=== PATIENT | female | born 1955 | race Caucasian/White ===

== ENCOUNTER 2018-09-03 18:30 | Inpatient (IN) | payer OTHER ==
[2018-09-03] MEDS ORDERED: PIPER-TAZO 3.375 GM IV (PMX) 100 ML IVPB (19:00)
[2018-09-03] MEDS ORDERED: NACL 0.9% 3 ML SYG IV (19:00)
[2018-09-03 19:17] LABS: ADD MAN DIFF? NO
[2018-09-03 19:18] LABS: WHITE BLOOD COUNT 8.1 10^3/ul (4.8-10.8)
[2018-09-03 19:18] LABS: BASOPHIL # 0.1 10^3/ul (0.0-0.1); BASOPHILS % 0.6 % (0.0-2.0); EOSINOPHILS % 0.2 % (0.0-7.0); HEMATOCRIT 38.7 % (37.0-47.0); HEMOGLOBIN 12.3 g/dl (12.0-16.0); LYMPHOCYTES # 1.2 10^3/ul (0.8-2.9); LYMPHOCYTES % 15.2 % (15.0-51.0); MEAN CORPUSCULAR HEMOGLOBIN 26.9 pg (29.0-33.0); MEAN CORPUSCULAR HGB CONC 31.8 g/dl (32.0-37.0); MEAN CORPUSCULAR VOLUME 84.5 fl (82.0-101.0); MEAN PLATELET VOLUME 8.8 fl (7.4-10.4); MONOCYTE # 0.5 10^3/ul (0.3-0.9); MONOCYTES % 6.2 % (0.0-11.0); NEUTROPHIL # 6.2 10^3/ul (1.6-7.5); NEUTROPHILS % 77.3 % (39.0-77.0); PLATELET COUNT 547 10^3/UL (140-415); RED BLOOD COUNT 4.58 10^6/ul (4.20-5.40); RED CELL DISTRIBUTION WIDTH 13.6 % (11.5-14.5)
[2018-09-03] MEDS ORDERED: VANCOMYCIN IV PER PHARMACY XX (19:30)
[2018-09-03 19:39] LABS: ALANINE AMINOTRANSFERASE 39 IU/L (13-69); ALBUMIN 3.4 g/dl (3.3-4.9); ALBUMIN/GLOBULIN RATIO 1.13; ALKALINE PHOSPHATASE 69 IU/L (42-121); ANION GAP 9 (5-13); ASPARTATE AMINO TRANSFERASE 29 IU/L (15-46); BILIRUBIN,INDIRECT 0.3 mg/dl (0-1.1); BILIRUBIN,TOTAL 0.3 mg/dl (0.2-1.3); BLOOD UREA NITROGEN 7 mg/dl (7-20); CALCIUM 8.3 mg/dl (8.4-10.2); CARBON DIOXIDE 23 mmol/L (21-31); CHLORIDE 108 mmol/L (97-110); CREATININE 0.54 mg/dl (0.44-1.00); Estimated GFR > 60 mL/min (>60); GLUCOSE 134 mg/dl (70-220); POTASSIUM 4.5 mmol/L (3.5-5.1); SODIUM 140 mmol/L (135-144); TOTAL PROTEIN 6.4 g/dl (6.1-8.1)
[2018-09-03 19:56] LABS: FREE THYROXINE INDEX (Calc) 2.87 ug/ml (0.65-3.89); T3 UPTAKE 33.8 % (23.5-40.5); T4 (THYROXINE) 8.5 ug/dl (5.5-11.0)
[2018-09-03 20:10] LABS: THYROID STIMULATING HORMONE 0.337 MIU/L (0.465-4.680)
[2018-09-03] MEDS: CEFTRIAXONE 1 GM/NS 50 ML IVPB (21:00)
[2018-09-03] MEDS: HYDROCODONE/APAP (5/325) TAB PO (21:01)
[2018-09-03] MEDS ORDERED: MEROPENEM 1 GM/50ML(PMX) 50 ML IVPB (22:00)
[2018-09-03] MEDS: VANCOMYCIN HCL 1.5 GM in SOD CHLORIDE 0.9% 250 ML IVPB (22:07)
[2018-09-03] MEDS: DEXAMETHASONE 4 MG/ML 1 ML INJ IV (22:49)
[2018-09-03] MEDS: morphine 2 MG INJ IV (23:25)
[2018-09-04] MEDS: morphine 2 MG INJ IV ×4 (06:33→20:34)
[2018-09-04 06:48] LABS: ADD MAN DIFF? NO
[2018-09-04 06:53] LABS: WHITE BLOOD COUNT 10.2 10^3/ul (4.8-10.8)
[2018-09-04 06:53] LABS: BASOPHIL # 0.1 10^3/ul (0.0-0.1); BASOPHILS % 0.6 % (0.0-2.0); EOSINOPHILS % 0.3 % (0.0-7.0); HEMATOCRIT 37.5 % (37.0-47.0); HEMOGLOBIN 11.9 g/dl (12.0-16.0); LYMPHOCYTES # 1.5 10^3/ul (0.8-2.9); LYMPHOCYTES % 14.6 % (15.0-51.0); MEAN CORPUSCULAR HEMOGLOBIN 26.8 pg (29.0-33.0); MEAN CORPUSCULAR HGB CONC 31.7 g/dl (32.0-37.0); MEAN CORPUSCULAR VOLUME 84.5 fl (82.0-101.0); MONOCYTE # 0.8 10^3/ul (0.3-0.9); MONOCYTES % 7.6 % (0.0-11.0); NEUTROPHIL # 7.8 10^3/ul (1.6-7.5); NEUTROPHILS % 76.2 % (39.0-77.0); PLATELET COUNT 543 10^3/UL (140-415); RED BLOOD COUNT 4.44 10^6/ul (4.20-5.40); RED CELL DISTRIBUTION WIDTH 13.9 % (11.5-14.5)
[2018-09-04 07:06] LABS: HEMOGLOBIN A1C 5.9 % (0-5.9)
[2018-09-04 07:38] LABS: ALANINE AMINOTRANSFERASE 33 IU/L (13-69); ALBUMIN 3.1 g/dl (3.3-4.9); ALBUMIN/GLOBULIN RATIO 1.06; ALKALINE PHOSPHATASE 57 IU/L (42-121); ANION GAP 10 (5-13); ASPARTATE AMINO TRANSFERASE 27 IU/L (15-46); BILIRUBIN,INDIRECT 0.3 mg/dl (0-1.1); BILIRUBIN,TOTAL 0.3 mg/dl (0.2-1.3); BLOOD UREA NITROGEN 10 mg/dl (7-20); CALCIUM 8.2 mg/dl (8.4-10.2); CARBON DIOXIDE 25 mmol/L (21-31); CHLORIDE 106 mmol/L (97-110); CREATININE 0.53 mg/dl (0.44-1.00); Estimated GFR > 60 mL/min (>60); GLUCOSE 123 mg/dl (70-220); MAGNESIUM 2.3 mg/dl (1.7-2.5); POTASSIUM 4.5 mmol/L (3.5-5.1); SODIUM 141 mmol/L (135-144)
[2018-09-04] MEDS: VANCOMYCIN 1 GM 250 ML IVPB ×2 (09:12→22:03)
[2018-09-04] MEDS: CEFTRIAXONE 1 GM/NS 50 ML IVPB (20:37)
[2018-09-05] MEDS: ACETAMINOPHEN 325 MG TAB PO (00:18)
[2018-09-05] MEDS: morphine 2 MG INJ IV ×5 (00:23→19:56)
[2018-09-05 01:27] LABS: LACTIC ACID 0.8 mmol/L (0.5-2.0)
[2018-09-05] MEDS: VANCOMYCIN TROUGH XX (09:00)
[2018-09-05 10:26] LABS: VANCOMYCIN,TROUGH 5.6 ug/ml (10.0-20.0)
[2018-09-05] MEDS: VANCOMYCIN 1 GM 250 ML IVPB (10:49)
[2018-09-05] MEDS ORDERED: AMPICILLIN/SULB 3 GM/NS (PMX) 100 ML IVPB (12:00)
[2018-09-05] MEDS: MEROPENEM 1 GM/50ML(PMX) 50 ML IVPB ×2 (14:33→21:54)
[2018-09-06] MEDS: morphine 2 MG INJ IV ×6 (00:33→22:30)
[2018-09-06] MEDS: MEROPENEM 1 GM/50ML(PMX) 50 ML IVPB ×3 (06:34→21:02)
[2018-09-06] MEDS: FLUCONAZOLE 100 MG/50 ML (PMX) 50 ML IVPB (17:28)
[2018-09-06] MEDS: BISACODYL (EC) 5 MG TAB PO (17:28)
[2018-09-06] MEDS: NYSTATIN SUSP 5 ML CUP PO ×2 (17:30→21:03)
[2018-09-07] MEDS: morphine 2 MG INJ IV ×4 (02:52→22:40)
[2018-09-07] MEDS: MEROPENEM 1 GM/50ML(PMX) 50 ML IVPB ×3 (06:24→22:40)
[2018-09-07] MEDS: NYSTATIN SUSP 5 ML CUP PO ×4 (09:29→20:31)
[2018-09-07] MEDS: SOD CHLORIDE 0.9% 1,000 ML IV (12:11)
[2018-09-07] MEDS: HYDROCODONE/APAP (5/325) TAB PO (19:02)
[2018-09-07] MEDS: FLUCONAZOLE 100 MG/50 ML (PMX) 50 ML IVPB (20:31)
[2018-09-08] MEDS: morphine 2 MG INJ IV ×4 (05:22→21:26)
[2018-09-08] MEDS: MEROPENEM 1 GM/50ML(PMX) 50 ML IVPB ×3 (05:22→21:23)
[2018-09-08] MEDS: NYSTATIN SUSP 5 ML CUP PO ×4 (08:37→20:34)
[2018-09-08] MEDS: HYDROCODONE/APAP (5/325) TAB PO (12:57)
[2018-09-08] MEDS: KETOROLAC 15 MG INJ IV ×2 (17:24→23:47)
[2018-09-08] MEDS: FLUCONAZOLE 100 MG/50 ML (PMX) 50 ML IVPB (18:11)
[2018-09-09] MEDS: MEROPENEM 1 GM/50ML(PMX) 50 ML IVPB ×3 (05:17→21:56)
[2018-09-09] MEDS: KETOROLAC 15 MG INJ IV ×2 (05:54→19:22)
[2018-09-09 06:09] LABS: ADD MAN DIFF? NO
[2018-09-09 06:10] LABS: WHITE BLOOD COUNT 14.8 10^3/ul (4.8-10.8)
[2018-09-09 06:10] LABS: BASOPHIL # 0.1 10^3/ul (0.0-0.1); BASOPHILS % 0.8 % (0.0-2.0); EOSINOPHILS # 1.5 10^3/ul (0.0-0.5); EOSINOPHILS % 9.9 % (0.0-7.0); HEMATOCRIT 38.9 % (37.0-47.0); HEMOGLOBIN 12.4 g/dl (12.0-16.0); LYMPHOCYTES # 2.3 10^3/ul (0.8-2.9); LYMPHOCYTES % 15.7 % (15.0-51.0); MEAN CORPUSCULAR HEMOGLOBIN 26.7 pg (29.0-33.0); MEAN CORPUSCULAR HGB CONC 31.9 g/dl (32.0-37.0); MEAN CORPUSCULAR VOLUME 83.8 fl (82.0-101.0); MEAN PLATELET VOLUME 8.9 fl (7.4-10.4); MONOCYTE # 1.1 10^3/ul (0.3-0.9); MONOCYTES % 7.2 % (0.0-11.0); NEUTROPHIL # 9.7 10^3/ul (1.6-7.5); NEUTROPHILS % 65.8 % (39.0-77.0); PLATELET COUNT 739 10^3/UL (140-415); RED BLOOD COUNT 4.64 10^6/ul (4.20-5.40); RED CELL DISTRIBUTION WIDTH 13.6 % (11.5-14.5)
[2018-09-09 06:42] LABS: ANION GAP 10 (5-13); BLOOD UREA NITROGEN 12 mg/dl (7-20); CALCIUM 8.6 mg/dl (8.4-10.2); CARBON DIOXIDE 28 mmol/L (21-31); CHLORIDE 99 mmol/L (97-110); CREATININE 0.62 mg/dl (0.44-1.00); Estimated GFR > 60 mL/min (>60); GLUCOSE 100 mg/dl (70-220); POTASSIUM 4.3 mmol/L (3.5-5.1); SODIUM 137 mmol/L (135-144)
[2018-09-09] MEDS: NYSTATIN SUSP 5 ML CUP PO ×4 (09:36→20:48)
[2018-09-09] MEDS: morphine 2 MG INJ IV ×3 (10:45→22:01)
[2018-09-09] MEDS: FLUCONAZOLE 100 MG/50 ML (PMX) 50 ML IVPB (18:42)
[2018-09-10] MEDS: KETOROLAC 15 MG INJ IV ×4 (01:52→19:52)
[2018-09-10] MEDS: morphine 2 MG INJ IV ×4 (03:53→19:53)
[2018-09-10] MEDS: MEROPENEM 1 GM/50ML(PMX) 50 ML IVPB ×3 (05:32→20:01)
[2018-09-10] MEDS: NYSTATIN SUSP 5 ML CUP PO ×4 (08:18→20:01)
[2018-09-10] MEDS: FLUCONAZOLE 100 MG/50 ML (PMX) 50 ML IVPB (18:27)
[2018-09-11] MEDS: morphine 2 MG INJ IV ×6 (00:13→23:27)
[2018-09-11] MEDS: KETOROLAC 15 MG INJ IV ×4 (02:06→21:33)
[2018-09-11] MEDS: MEROPENEM 1 GM/50ML(PMX) 50 ML IVPB ×3 (05:11→21:33)
[2018-09-11] MEDS: NYSTATIN SUSP 5 ML CUP PO ×4 (08:51→20:31)
[2018-09-11] MEDS: SOD CHLORIDE 0.9% 500 ML IV (11:48)
[2018-09-11] MEDS ORDERED: DEXTROSE 5%-0.45% NACL 1,000 ML IV (12:00)
[2018-09-11] MEDS: FLUCONAZOLE 100 MG/50 ML (PMX) 50 ML IVPB (18:23)
[2018-09-12] MEDS: SOD CHLORIDE 0.9% 1,000 ML IV (02:37)
[2018-09-12] MEDS: KETOROLAC 15 MG INJ IV ×3 (03:55→20:25)
[2018-09-12] MEDS: MEROPENEM 1 GM/50ML(PMX) 50 ML IVPB ×3 (05:48→21:45)
[2018-09-12] MEDS: NYSTATIN SUSP 5 ML CUP PO ×4 (08:52→20:23)
[2018-09-12] MEDS: morphine 2 MG INJ IV ×3 (10:51→21:56)
[2018-09-12] MEDS: FLUCONAZOLE 100 MG/50 ML (PMX) 50 ML IVPB (18:07)
[2018-09-12] MEDS: ONDANSETRON 4 MG INJ IV (20:25)
[2018-09-13] MEDS: morphine 2 MG INJ IV ×3 (02:33→16:43)
[2018-09-13] MEDS: MEROPENEM 1 GM/50ML(PMX) 50 ML IVPB ×3 (05:10→22:32)
[2018-09-13] MEDS: ONDANSETRON 4 MG INJ IV ×3 (05:35→22:33)
[2018-09-13] MEDS: NYSTATIN SUSP 5 ML CUP PO ×4 (09:03→20:16)
[2018-09-13] MEDS: KETOROLAC 15 MG INJ IV ×3 (09:04→22:33)
[2018-09-13] MEDS ORDERED: VANCOMYCIN IV PER PHARMACY XX (11:00)
[2018-09-13] MEDS: VANCOMYCIN HCL 1.5 GM in SOD CHLORIDE 0.9% 250 ML IVPB (15:23)
[2018-09-13 16:10] LABS: BLOOD UREA NITROGEN 10 mg/dl (7-20)
[2018-09-13] MEDS: HYDROmorphONE 1 MG/ML SYG IV (17:56)
[2018-09-13] MEDS: FLUCONAZOLE 100 MG/50 ML (PMX) 50 ML IVPB (20:15)
[2018-09-13 20:16] LABS: ADD MAN DIFF? NO
[2018-09-13] MEDS: HYDROmorphONE 0.5 MG/0.5 ML SYG IV (20:16)
[2018-09-13] MEDS: METOCLOPRAMIDE 10 MG INJ IV (20:16)
[2018-09-13 20:18] LABS: WHITE BLOOD COUNT 20.3 10^3/ul (4.8-10.8)
[2018-09-13 20:18] LABS: ABNORMAL IP MESSAGE 1; BASOPHIL # 0.1 10^3/ul (0.0-0.1); BASOPHILS % 0.3 % (0.0-2.0); EOSINOPHILS # 2.2 10^3/ul (0.0-0.5); HEMATOCRIT 38.5 % (37.0-47.0); HEMOGLOBIN 12.7 g/dl (12.0-16.0); LYMPHOCYTES # 1.5 10^3/ul (0.8-2.9); LYMPHOCYTES % 7.4 % (15.0-51.0); MEAN CORPUSCULAR HEMOGLOBIN 26.5 pg (29.0-33.0); MEAN CORPUSCULAR VOLUME 80.4 fl (82.0-101.0); MEAN PLATELET VOLUME 8.8 fl (7.4-10.4); MONOCYTE # 0.5 10^3/ul (0.3-0.9); MONOCYTES % 2.6 % (0.0-11.0); NEUTROPHIL # 15.8 10^3/ul (1.6-7.5); NEUTROPHILS % 78.1 % (39.0-77.0); PLATELET COUNT 658 10^3/UL (140-415); RED BLOOD COUNT 4.79 10^6/ul (4.20-5.40); RED CELL DISTRIBUTION WIDTH 13.9 % (11.5-14.5)
[2018-09-13 20:27] LABS: POSITIVE DIFF @See below
[2018-09-13] MEDS: CLINDAMYCIN 900 MG/D5W (PMX) 50 ML IVPB (21:21)
[2018-09-13] MEDS: DEXAMETHASONE 4 MG/ML 5 ML INJ IV (22:33)
[2018-09-14] MEDS: CLINDAMYCIN 900 MG/D5W (PMX) 50 ML IVPB ×4 (00:22→17:32)
[2018-09-14 01:12] LABS: OCCULT BLOOD STOOL POSITIVE (NEGATIVE)
[2018-09-14] MEDS: VANCOMYCIN HCL 1.5 GM in SOD CHLORIDE 0.9% 250 ML IVPB ×2 (02:32→14:55)
[2018-09-14 02:39] LABS: ADD MAN DIFF? NO
[2018-09-14] MEDS: morphine 2 MG INJ IV ×3 (02:39→19:51)
[2018-09-14 02:42] LABS: WHITE BLOOD COUNT 19.4 10^3/ul (4.8-10.8)
[2018-09-14 02:42] LABS: BASOPHIL # 0.1 10^3/ul (0.0-0.1); BASOPHILS % 0.5 % (0.0-2.0); EOSINOPHILS # 0.2 10^3/ul (0.0-0.5); EOSINOPHILS % 0.9 % (0.0-7.0); HEMOGLOBIN 12.6 g/dl (12.0-16.0); LYMPHOCYTES % 5.1 % (15.0-51.0); MEAN CORPUSCULAR HEMOGLOBIN 26.8 pg (29.0-33.0); MEAN CORPUSCULAR HGB CONC 33.2 g/dl (32.0-37.0); MEAN CORPUSCULAR VOLUME 80.9 fl (82.0-101.0); MEAN PLATELET VOLUME 8.8 fl (7.4-10.4); MONOCYTE # 0.3 10^3/ul (0.3-0.9); MONOCYTES % 1.4 % (0.0-11.0); NEUTROPHIL # 17.7 10^3/ul (1.6-7.5); NEUTROPHILS % 91.3 % (39.0-77.0); PLATELET COUNT 636 10^3/UL (140-415); RED CELL DISTRIBUTION WIDTH 13.6 % (11.5-14.5)
[2018-09-14] MEDS: DEXAMETHASONE 4 MG/ML 5 ML INJ IV ×2 (06:03→13:58)
[2018-09-14] MEDS: MEROPENEM 1 GM/50ML(PMX) 50 ML IVPB ×3 (06:03→21:28)
[2018-09-14] MEDS: KETOROLAC 15 MG INJ IV (06:45)
[2018-09-14] MEDS: NYSTATIN SUSP 5 ML CUP PO ×4 (09:06→20:01)
[2018-09-14 09:23] LABS: ADD MAN DIFF? NO
[2018-09-14 09:34] LABS: WHITE BLOOD COUNT 13.4 10^3/ul (4.8-10.8)
[2018-09-14 09:34] LABS: BASOPHIL # 0.1 10^3/ul (0.0-0.1); BASOPHILS % 0.4 % (0.0-2.0); EOSINOPHILS # 0.2 10^3/ul (0.0-0.5); EOSINOPHILS % 1.2 % (0.0-7.0); HEMATOCRIT 39.6 % (37.0-47.0); HEMOGLOBIN 12.9 g/dl (12.0-16.0); LYMPHOCYTES # 1.2 10^3/ul (0.8-2.9); LYMPHOCYTES % 8.9 % (15.0-51.0); MEAN CORPUSCULAR HGB CONC 32.6 g/dl (32.0-37.0); MEAN CORPUSCULAR VOLUME 79.7 fl (82.0-101.0); MEAN PLATELET VOLUME 9.3 fl (7.4-10.4); MONOCYTE # 0.2 10^3/ul (0.3-0.9); MONOCYTES % 1.6 % (0.0-11.0); NEUTROPHIL # 11.6 10^3/ul (1.6-7.5); NEUTROPHILS % 86.9 % (39.0-77.0); PLATELET COUNT 669 10^3/UL (140-415); RED BLOOD COUNT 4.97 10^6/ul (4.20-5.40); RED CELL DISTRIBUTION WIDTH 13.9 % (11.5-14.5)
[2018-09-14 09:47] LABS: POSITIVE DIFF @See below
[2018-09-14 09:48] LABS: ALANINE AMINOTRANSFERASE 18 IU/L (13-69); ALBUMIN 3.1 g/dl (3.3-4.9); ALBUMIN/GLOBULIN RATIO 0.93; ALKALINE PHOSPHATASE 56 IU/L (42-121); ANION GAP 13 (5-13); ASPARTATE AMINO TRANSFERASE 17 IU/L (15-46); BILIRUBIN,INDIRECT 0.3 mg/dl (0-1.1); BILIRUBIN,TOTAL 0.3 mg/dl (0.2-1.3); BLOOD UREA NITROGEN 14 mg/dl (7-20); CALCIUM 8.1 mg/dl (8.4-10.2); CARBON DIOXIDE 24 mmol/L (21-31); CHLORIDE 98 mmol/L (97-110); CREATININE 0.42 mg/dl (0.44-1.00); Estimated GFR > 60 mL/min (>60); GLUCOSE 147 mg/dl (70-220); POTASSIUM 4.2 mmol/L (3.5-5.1); SODIUM 135 mmol/L (135-144); TOTAL PROTEIN 6.4 g/dl (6.1-8.1)
[2018-09-14] MEDS: ONDANSETRON 4 MG INJ IV ×3 (13:08→21:27)
[2018-09-14] MEDS: HYOSCYAMINE 0.125 MG SUBL TAB PO ×2 (16:00→21:32)
[2018-09-14] MEDS: METOCLOPRAMIDE 10 MG INJ IV (17:32)
[2018-09-14] MEDS: FLUCONAZOLE 100 MG/50 ML (PMX) 50 ML IVPB (20:15)
[2018-09-14] MEDS: HYDROmorphONE 1 MG/ML SYG IV (21:27)
[2018-09-15] MEDS: METOCLOPRAMIDE 10 MG INJ IV ×4 (00:03→17:25)
[2018-09-15] MEDS: CLINDAMYCIN 900 MG/D5W (PMX) 50 ML IVPB ×3 (00:03→11:41)
[2018-09-15] MEDS: HYDROmorphONE 1 MG/ML SYG IV ×4 (04:14→18:40)
[2018-09-15] MEDS: MEROPENEM 1 GM/50ML(PMX) 50 ML IVPB ×2 (05:26→13:54)
[2018-09-15] MEDS: HYOSCYAMINE 0.125 MG SUBL TAB PO ×2 (06:00→13:49)
[2018-09-15 06:15] LABS: ADD MAN DIFF? NO
[2018-09-15 06:16] LABS: WHITE BLOOD COUNT 17.7 10^3/ul (4.8-10.8)
[2018-09-15 06:16] LABS: BASOPHIL # 0.1 10^3/ul (0.0-0.1); BASOPHILS % 0.4 % (0.0-2.0); EOSINOPHILS # 0.1 10^3/ul (0.0-0.5); EOSINOPHILS % 0.6 % (0.0-7.0); HEMATOCRIT 37.9 % (37.0-47.0); HEMOGLOBIN 12.5 g/dl (12.0-16.0); LYMPHOCYTES # 1.6 10^3/ul (0.8-2.9); MEAN CORPUSCULAR HEMOGLOBIN 26.3 pg (29.0-33.0); MEAN CORPUSCULAR VOLUME 79.8 fl (82.0-101.0); MEAN PLATELET VOLUME 9.4 fl (7.4-10.4); MONOCYTES % 5.4 % (0.0-11.0); NEUTROPHIL # 14.6 10^3/ul (1.6-7.5); NEUTROPHILS % 82.8 % (39.0-77.0); PLATELET COUNT 678 10^3/UL (140-415); RED BLOOD COUNT 4.75 10^6/ul (4.20-5.40); RED CELL DISTRIBUTION WIDTH 13.8 % (11.5-14.5)
[2018-09-15] MEDS: DIPHENHYDRAMINE 50 MG INJ IV ×3 (06:55→23:54)
[2018-09-15] MEDS: NYSTATIN SUSP 5 ML CUP PO ×4 (08:27→16:48)
[2018-09-15] MEDS: SOD CHLORIDE 0.9% 100 ML ×2 (10:28→11:49)
[2018-09-15] MEDS: IOHEXOL 300MG/ML 150 ML BTL ×2 (10:28→11:48)
[2018-09-15] MEDS: IOHEXOL 14.3 MG(I)/ML (ADULT) BTL PO (11:40)
[2018-09-15] MEDS ORDERED: VANCOMYCIN IV PER PHARMACY XX (15:00)
[2018-09-15] MEDS: metroNIDAZOLE 500 MG/NS (PMX) 100 ML IVPB ×2 (15:52→23:50)
[2018-09-15] MEDS: VANCOMYCIN HCL 1.5 GM in SOD CHLORIDE 0.9% 250 ML IVPB (16:47)
[2018-09-15] MEDS: SOD CHLORIDE 0.9% 1,000 ML IV (16:48)
[2018-09-15] MEDS: ACETAMINOPHEN 1000MG/100ML IV 100 ML IVPB (18:17)
[2018-09-15] MEDS: FLUCONAZOLE 100 MG/50 ML (PMX) 50 ML IVPB (18:20)
[2018-09-15] MEDS ORDERED: LIDO PO ×2 (20:30→21:30)
[2018-09-15] MEDS ORDERED: DIPHENHYD PO ×2 (20:30→21:30)
[2018-09-15] MEDS ORDERED: MYLANTA PO ×2 (20:30→21:30)
[2018-09-15] MEDS ORDERED: FENTAnyl 50 MCG/ML VIAL IV ×3 (21:30)
[2018-09-15] MEDS ORDERED: HYDROmorphONE 1 MG/5 ML IV SYRINGE IV ×3 (21:30)
[2018-09-15] MEDS ORDERED: ONDANSETRON 4 MG INJ IV (21:30)
[2018-09-15] MEDS ORDERED: MEPERIDINE 25 MG INJ IV (21:30)
[2018-09-15] MEDS ORDERED: METOCLOPRAMIDE 10 MG INJ (21:32)
[2018-09-15] MEDS ORDERED: PROPOFOL 20 ML (21:32)
[2018-09-15] MEDS ORDERED: ONDANSETRON 4 MG INJ (21:32)
[2018-09-15] MEDS ORDERED: SUCCINYLCHOLINE CHLORIDE 100 MG/5 ML SYG IV (21:32)
[2018-09-15] MEDS ORDERED: DEXAMETHASONE 4 MG/ML 5 ML INJ (21:44)
[2018-09-15] MEDS ORDERED: ROCURONIUM 50 MG INJ (21:48)
[2018-09-15] MEDS ORDERED: PHENYLephrine (100 MCG/ML) 10ML SYG (22:06)
[2018-09-15] MEDS: LACTATED RINGER'S 1,000 ML IV (22:19)
[2018-09-15] MEDS ORDERED: EPHEDrine 25 MG/5 ML SYG (22:25)
[2018-09-15] MEDS ORDERED: PROPOFOL 100 ML (22:32)
[2018-09-15] MEDS ORDERED: LORAZEPAM 2 MG INJ (22:51)
[2018-09-15] MEDS: PROPOFOL 100 ML IV (22:53)
[2018-09-15 22:58] LABS: AADO2 Arterial 502.2 mmHg (7.0-24.0); Allen Test ACCEPTAB; Arterial Base Excess 0.9 mmol/L (-3.0-3); Arterial Blood Gas Oxygen Sat 99.1 mmHG (95.0-98.0); Arterial COHb 0.2 % (0.0-3.0); Arterial Fraction of Oxyhgb 98.4 % (93.0-99.0); Arterial HCO3 23.8 mmol/L (22.0-26.0); Arterial MetHb 0.5 % (0.0-1.5); Arterial pCO2 32.8 mmhg (35-45); MODE VENT - AC; Site Right Radial
[2018-09-15] MEDS: LORAZEPAM 2 MG INJ IV (22:59)
[2018-09-15] MEDS: AZTREONAM 1 GM/NS (PMX) 50 ML IVPB (23:50)
[2018-09-16] MEDS: FENTAnyl (DRIP) 1000 mcg/100mL 100 ML IV ×2 (01:10→15:36)
[2018-09-16] MEDS: MIDAZOLAM (DRIP) 50 mg/50 mL 50 ML IV ×4 (01:10→23:58)
[2018-09-16] MEDS: PROPOFOL 100 ML IV ×4 (01:20→18:32)
[2018-09-16] MEDS: NYSTATIN SUSP 5 ML CUP PO ×5 (02:42→20:05)
[2018-09-16] MEDS: ACETAMINOPHEN 1000MG/100ML IV 100 ML IVPB (02:42)
[2018-09-16] MEDS: HYDROCORTISONE 1% 28.35 GM OINT TOP ×4 (02:42→20:24)
[2018-09-16] MEDS: HYOSCYAMINE 0.125 MG SUBL TAB PO ×4 (02:43→21:07)
[2018-09-16] MEDS: METOCLOPRAMIDE 10 MG INJ IV ×5 (03:10→23:57)
[2018-09-16] MEDS: DEXTROSE 5%-0.45% NACL 1,000 ML IV ×3 (03:42→16:57)
[2018-09-16] MEDS: VANCOMYCIN HCL 1.5 GM in SOD CHLORIDE 0.9% 250 ML IVPB ×2 (04:24→17:25)
[2018-09-16 05:52] LABS: WHITE BLOOD COUNT 14.9 10^3/ul (4.8-10.8)
[2018-09-16 05:52] LABS: HEMOGLOBIN 12.2 g/dl (12.0-16.0); MEAN CORPUSCULAR HEMOGLOBIN 26.3 pg (29.0-33.0); MEAN CORPUSCULAR VOLUME 79.9 fl (82.0-101.0); MEAN PLATELET VOLUME 9.2 fl (7.4-10.4); PLATELET COUNT 620 10^3/UL (140-415); RED BLOOD COUNT 4.63 10^6/ul (4.20-5.40); RED CELL DISTRIBUTION WIDTH 13.8 % (11.5-14.5)
[2018-09-16 05:58] LABS: ADD MAN DIFF? YES; POSITIVE DIFF @See below
[2018-09-16] MEDS ORDERED: PANTOPRAZOLE 40 MG INJ IV (06:00)
[2018-09-16 06:20] LABS: ALANINE AMINOTRANSFERASE 15 IU/L (13-69); ALBUMIN 2.9 g/dl (3.3-4.9); ALBUMIN/GLOBULIN RATIO 1.11; ALKALINE PHOSPHATASE 47 IU/L (42-121); ANION GAP 10 (5-13); ASPARTATE AMINO TRANSFERASE 16 IU/L (15-46); BILIRUBIN,INDIRECT 0.3 mg/dl (0-1.1); BILIRUBIN,TOTAL 0.3 mg/dl (0.2-1.3); BLOOD UREA NITROGEN 11 mg/dl (7-20); CALCIUM 7.9 mg/dl (8.4-10.2); CARBON DIOXIDE 29 mmol/L (21-31); CHLORIDE 98 mmol/L (97-110); CREATININE 0.47 mg/dl (0.44-1.00); Estimated GFR > 60 mL/min (>60); GLUCOSE 153 mg/dl (70-220); POTASSIUM 4.1 mmol/L (3.5-5.1); SODIUM 137 mmol/L (135-144); TOTAL PROTEIN 5.5 g/dl (6.1-8.1)
[2018-09-16 07:32] LABS: ANISOCYTOSIS 1+ (0-0); BAND NEUTROPHILS #M 1.7 10^3/ul (0.0-0.6); BAND NEUTROPHILS % (M) 12 % (0-4); BURR CELLS 1+ (0-0); EOSINOPHILS % (M) 2 % (0-7); LYMPHOCYTES #M 0.4 10^3/ul (0.8-2.9); LYMPHOCYTES % (M) 3 % (15-51); MONOCYTE #M 0.5 10^3/ul (0.3-0.9); MONOCYTES % (M) 4 % (0-11); PLASMA CELLS #M 0.1 10^3/ul (0.0-0.0); PLASMAC%(M) 1 % (0); PLATELET ESTIMATE INCREASED; SEG NEUT #M 11.9 10^3/ul (1.6-7.5); SEGMENTED NEUTROPHILS (M) % 78 % (39-77); SMUDGE%M 10 % (0-0)
[2018-09-16 07:44] LABS: AADO2 Arterial 189.9 mmHg (7.0-24.0); Allen Test ACCEPTAB; Arterial Base Excess 3.9 mmol/L (-3.0-3); Arterial Blood Gas Oxygen Sat 99.2 mmHG (95.0-98.0); Arterial COHb 0.3 % (0.0-3.0); Arterial Fraction of Oxyhgb 98.7 % (93.0-99.0); Arterial HCO3 27.9 mmol/L (22.0-26.0); Arterial MetHb 0.2 % (0.0-1.5); MODE VENT - AC; Site Right Radial
[2018-09-16] MEDS: metroNIDAZOLE 500 MG/NS (PMX) 100 ML IVPB ×3 (08:35→22:10)
[2018-09-16] MEDS: FAMOTIDINE 20 MG INJ IV ×2 (08:40→20:24)
[2018-09-16] MEDS: AZTREONAM 1 GM/NS (PMX) 50 ML IVPB ×2 (08:40→21:39)
[2018-09-16] MEDS: LORATADINE 10 MG TAB PO (17:26)
[2018-09-16] MEDS: FLUCONAZOLE 100 MG/50 ML (PMX) 50 ML IVPB (18:32)
[2018-09-17 03:05] LABS: ABNORMAL IP MESSAGE 1; HEMATOCRIT 33.2 % (37.0-47.0); HEMOGLOBIN 10.9 g/dl (12.0-16.0); MEAN CORPUSCULAR HEMOGLOBIN 26.5 pg (29.0-33.0); MEAN CORPUSCULAR HGB CONC 32.8 g/dl (32.0-37.0); MEAN CORPUSCULAR VOLUME 80.8 fl (82.0-101.0); MEAN PLATELET VOLUME 8.9 fl (7.4-10.4); PLATELET COUNT 537 10^3/UL (140-415); RED BLOOD COUNT 4.11 10^6/ul (4.20-5.40)
[2018-09-17 03:08] LABS: ADD MAN DIFF? YES; POSITIVE DIFF @See below
[2018-09-17 03:26] LABS: ANION GAP 7 (5-13); BLOOD UREA NITROGEN 11 mg/dl (7-20); CALCIUM 7.6 mg/dl (8.4-10.2); CARBON DIOXIDE 27 mmol/L (21-31); CHLORIDE 101 mmol/L (97-110); CREATININE 0.46 mg/dl (0.44-1.00); Estimated GFR > 60 mL/min (>60); GLUCOSE 116 mg/dl (70-220); MAGNESIUM 2.3 mg/dl (1.7-2.5); PHOSPHORUS 2.2 mg/dl (2.5-4.9); POTASSIUM 3.4 mmol/L (3.5-5.1); SODIUM 135 mmol/L (135-144)
[2018-09-17 03:47] LABS: ANISOCYTOSIS 1+ (0-0); BAND NEUTROPHILS #M 1.6 10^3/ul (0.0-0.6); BAND NEUTROPHILS % (M) 10 % (0-4); BASOPHIL #M 0.3 10^3/ul (0.0-0.0); BASOPHILS % (M) 2 % (0-2); EOSINOPHILS % (M) 22 % (0-7); ERYTHROBLAST% (NRBC) (M) 1 % (0-0); GIANT THROMBO% (M) 1 % (0-0); HYPOCHROMASIA 1+ (0-0); LYMPHOCYTES #M 0.9 10^3/ul (0.8-2.9); LYMPHOCYTES % (M) 6 % (15-51); MICROCYTOSIS 1+ (0-0); MONOCYTE #M 0.4 10^3/ul (0.3-0.9); MONOCYTES % (M) 3 % (0-11); MYELOCYTES #M 0.1 10^3/ul (0.0-0.0); MYELOCYTES % (M) 1 % (0-0); PLASMA CELLS #M 0.1 10^3/ul (0.0-0.0); PLASMAC%(M) 1 % (0); PLATELET ESTIMATE NORMAL; POLYCHROMASIA 2+ (0-0); REACTIVE LYMPHOCYTES #M 0.3 10^3/ul (0.0-0.0); REACTIVE LYMPHOCYTES% (M) 2 % (0-0); SEG NEUT #M 8.7 10^3/ul (1.6-7.5); SEGMENTED NEUTROPHILS (M) % 53 % (39-77); SMUDGE%M 11 % (0-0)
[2018-09-17] MEDS: VANCOMYCIN HCL 1.5 GM in SOD CHLORIDE 0.9% 250 ML IVPB (04:30)
[2018-09-17] MEDS: HYOSCYAMINE 0.125 MG SUBL TAB PO ×2 (05:25→13:17)
[2018-09-17] MEDS: metroNIDAZOLE 500 MG/NS (PMX) 100 ML IVPB ×3 (05:27→21:47)
[2018-09-17] MEDS: METOCLOPRAMIDE 10 MG INJ IV ×2 (05:27→13:17)
[2018-09-17] MEDS: MIDAZOLAM (DRIP) 50 mg/50 mL 50 ML IV ×3 (05:37→19:48)
[2018-09-17] MEDS: POTASSIUM PHOSPHATE 40 MEQ in SOD CHLORIDE 0.9% 250 ML IVPB (05:37)
[2018-09-17] MEDS: LORATADINE 10 MG TAB PO (09:00)
[2018-09-17] MEDS: FAMOTIDINE 20 MG INJ IV ×2 (09:00→20:43)
[2018-09-17] MEDS: NYSTATIN SUSP 5 ML CUP PO ×4 (09:00→20:43)
[2018-09-17] MEDS: AZTREONAM 1 GM/NS (PMX) 50 ML IVPB ×2 (09:01→20:43)
[2018-09-17] MEDS: HYDROCORTISONE 1% 28.35 GM OINT TOP ×3 (09:01→20:43)
[2018-09-17] MEDS: ACETAMINOPHEN 325 MG TAB PO (09:05)
[2018-09-17] MEDS: FENTAnyl (DRIP) 1000 mcg/100mL 100 ML IV (10:21)
[2018-09-17] MEDS: PROPOFOL 100 ML IV (11:38)
[2018-09-17] MEDS: LIDOCAINE 1% (MPF) 5 ML VIAL SC (14:45)
[2018-09-17] MEDS ORDERED: METOCLOPRAMIDE 10 MG INJ IV (16:00)
[2018-09-17] MEDS: VANCOMYCIN HCL 1.75 GM in SOD CHLORIDE 0.9% 500 ML IVPB (16:39)
[2018-09-17] MEDS: FLUCONAZOLE 100 MG/50 ML (PMX) 50 ML IVPB (18:39)
[2018-09-17] MEDS: DIPHENHYDRAMINE 50 MG INJ IV (21:49)
[2018-09-18] MEDS: FENTAnyl (DRIP) 1000 mcg/100mL 100 ML IV ×2 (00:18→18:37)
[2018-09-18] MEDS: MIDAZOLAM (DRIP) 50 mg/50 mL 50 ML IV ×4 (02:53→22:49)
[2018-09-18] MEDS: PROPOFOL 100 ML IV (04:12)
[2018-09-18] MEDS: VANCOMYCIN HCL 1.75 GM in SOD CHLORIDE 0.9% 500 ML IVPB ×2 (04:12→16:29)
[2018-09-18 04:58] LABS: WHITE BLOOD COUNT 19.7 10^3/ul (4.8-10.8)
[2018-09-18 04:58] LABS: ABNORMAL IP MESSAGE 1; HEMOGLOBIN 9.5 g/dl (12.0-16.0); MEAN CORPUSCULAR HGB CONC 32.8 g/dl (32.0-37.0); MEAN CORPUSCULAR VOLUME 82.4 fl (82.0-101.0); MEAN PLATELET VOLUME 9.2 fl (7.4-10.4); PLATELET COUNT 429 10^3/UL (140-415); RED BLOOD COUNT 3.52 10^6/ul (4.20-5.40); RED CELL DISTRIBUTION WIDTH 14.5 % (11.5-14.5)
[2018-09-18] MEDS: ACETAMINOPHEN 325 MG TAB PO (05:05)
[2018-09-18] MEDS: metroNIDAZOLE 500 MG/NS (PMX) 100 ML IVPB ×2 (05:05→13:03)
[2018-09-18 05:10] LABS: ADD MAN DIFF? YES; POSITIVE DIFF @See below
[2018-09-18 05:38] LABS: ANION GAP 5 (5-13); BLOOD UREA NITROGEN 6 mg/dl (7-20); CALCIUM 6.3 mg/dl (8.4-10.2); CARBON DIOXIDE 25 mmol/L (21-31); CHLORIDE 107 mmol/L (97-110); CREATININE 0.41 mg/dl (0.44-1.00); Estimated GFR > 60 mL/min (>60); GLUCOSE 82 mg/dl (70-220); MAGNESIUM 1.7 mg/dl (1.7-2.5); PHOSPHORUS 2.6 mg/dl (2.5-4.9); POTASSIUM 3.4 mmol/L (3.5-5.1); SODIUM 137 mmol/L (135-144)
[2018-09-18 08:08] LABS: ANISOCYTOSIS 1+ (0-0); BAND NEUTROPHILS #M 1.9 10^3/ul (0.0-0.6); BAND NEUTROPHILS % (M) 10 % (0-4); BURR CELLS 1+ (0-0); EOSINOPHILS % (M) 35 % (0-7); LYMPHOCYTES #M 1.9 10^3/ul (0.8-2.9); LYMPHOCYTES % (M) 10 % (15-51); MONOCYTE #M 0.7 10^3/ul (0.3-0.9); MONOCYTES % (M) 4 % (0-11); MYELOCYTES #M 0.1 10^3/ul (0.0-0.0); MYELOCYTES % (M) 1 % (0-0); PLATELET ESTIMATE NORMAL; POLYCHROMASIA 3+ (0-0); REACTIVE LYMPHOCYTES #M 0.3 10^3/ul (0.0-0.0); REACTIVE LYMPHOCYTES% (M) 2 % (0-0); SEG NEUT #M 7.9 10^3/ul (1.6-7.5); SEGMENTED NEUTROPHILS (M) % 38 % (39-77); SMUDGE%M 8 % (0-0)
[2018-09-18] MEDS: SOD CHLORIDE 0.9% 500 ML IV (09:11)
[2018-09-18] MEDS: AZTREONAM 1 GM/NS (PMX) 50 ML IVPB (09:11)
[2018-09-18] MEDS: POTASSIUM CHLORIDE 100 ML IVPB ×2 (09:12→11:27)
[2018-09-18] MEDS: NYSTATIN SUSP 5 ML CUP PO ×4 (09:12→21:54)
[2018-09-18] MEDS: FAMOTIDINE 20 MG INJ IV (09:12)
[2018-09-18] MEDS: HYDROCORTISONE 1% 28.35 GM OINT TOP ×3 (09:13→21:55)
[2018-09-18] MEDS: LORATADINE 10 MG TAB PO (09:13)
[2018-09-18] MEDS: LACTULOSE 30ML CUP PO (13:03)
[2018-09-18] MEDS: DIPHENHYDRAMINE 50 MG INJ IV (17:44)
[2018-09-18] MEDS: FLUCONAZOLE 100 MG/50 ML (PMX) 50 ML IVPB (18:27)
[2018-09-18] MEDS: FAMOTIDINE 20 MG TAB GTB (21:54)
[2018-09-19] MEDS: PROPOFOL 100 ML IV ×2 (01:00→07:46)
[2018-09-19 03:17] LABS: WHITE BLOOD COUNT 23.4 10^3/ul (4.8-10.8)
[2018-09-19 03:17] LABS: ABNORMAL IP MESSAGE 1; HEMATOCRIT 31.9 % (37.0-47.0); HEMOGLOBIN 10.3 g/dl (12.0-16.0); MEAN CORPUSCULAR HEMOGLOBIN 26.9 pg (29.0-33.0); MEAN CORPUSCULAR HGB CONC 32.3 g/dl (32.0-37.0); MEAN CORPUSCULAR VOLUME 83.3 fl (82.0-101.0); MEAN PLATELET VOLUME 8.8 fl (7.4-10.4); PLATELET COUNT 461 10^3/UL (140-415); RED BLOOD COUNT 3.83 10^6/ul (4.20-5.40); RED CELL DISTRIBUTION WIDTH 14.6 % (11.5-14.5)
[2018-09-19 03:20] LABS: ADD MAN DIFF? YES; POSITIVE DIFF @See below
[2018-09-19 03:41] LABS: ANION GAP 3 (5-13); BLOOD UREA NITROGEN 7 mg/dl (7-20); CARBON DIOXIDE 27 mmol/L (21-31); CHLORIDE 106 mmol/L (97-110); CREATININE 0.51 mg/dl (0.44-1.00); Estimated GFR > 60 mL/min (>60); GLUCOSE 121 mg/dl (70-220); POTASSIUM 3.8 mmol/L (3.5-5.1); SODIUM 136 mmol/L (135-144)
[2018-09-19] MEDS: VANCOMYCIN HCL 1.75 GM in SOD CHLORIDE 0.9% 500 ML IVPB (04:00)
[2018-09-19 04:22] LABS: VANCOMYCIN,TROUGH 30.5 ug/ml (10.0-20.0)
[2018-09-19 04:29] LABS: ANISOCYTOSIS 2+ (0-0); BAND NEUTROPHILS #M 4.2 10^3/ul (0.0-0.6); BAND NEUTROPHILS % (M) 18 % (0-4); EOSINOPHILS % (M) 29 % (0-7); GIANT THROMBO% (M) 1 % (0-0); LYMPHOCYTES #M 1.4 10^3/ul (0.8-2.9); LYMPHOCYTES % (M) 6 % (15-51); MICROCYTOSIS 1+ (0-0); MONOCYTE #M 0.4 10^3/ul (0.3-0.9); MONOCYTES % (M) 2 % (0-11); PLATELET ESTIMATE INCREASED; POLYCHROMASIA 3+ (0-0); SEG NEUT #M 11.5 10^3/ul (1.6-7.5); SEGMENTED NEUTROPHILS (M) % 45 % (39-77); SMUDGE%M 1 % (0-0)
[2018-09-19] MEDS: SOD CHLORIDE 0.9% 500 ML IV ×2 (06:55→11:02)
[2018-09-19] MEDS: HYDROCORTISONE 1% 28.35 GM OINT TOP ×3 (08:38→20:54)
[2018-09-19] MEDS: NYSTATIN SUSP 5 ML CUP PO ×4 (08:38→20:53)
[2018-09-19] MEDS: LORATADINE 10 MG TAB PO (08:38)
[2018-09-19] MEDS: FAMOTIDINE 20 MG TAB GTB ×2 (08:39→20:53)
[2018-09-19] MEDS: MIDAZOLAM (DRIP) 50 mg/50 mL 50 ML IV ×2 (12:12→21:44)
[2018-09-19 13:22] LABS: ANCA SCREEN NEGATIVE (NEGATIVE); MYELOPEROXIDASE ANTIBODY <1.0 AI; PROTEINASE-3 ANTIBODY <1.0 AI
[2018-09-19] MEDS: FENTAnyl (DRIP) 1000 mcg/100mL 100 ML IV (17:10)
[2018-09-19] MEDS: FLUCONAZOLE 100 MG/50 ML (PMX) 50 ML IVPB (18:08)
[2018-09-20] MEDS: PROPOFOL 100 ML IV ×2 (01:00→08:05)
[2018-09-20 05:42] LABS: VANCOMYCIN,RANDOM < 5.0 ug/ml
[2018-09-20] MEDS: NYSTATIN SUSP 5 ML CUP PO (07:59)
[2018-09-20] MEDS: FAMOTIDINE 20 MG TAB GTB (08:04)
[2018-09-20] MEDS: HYDROCORTISONE 1% 28.35 GM OINT TOP (08:04)
[2018-09-20] MEDS: LORATADINE 10 MG TAB PO (08:04)
[2018-09-20 08:54] LABS: BLOOD UREA NITROGEN 8 mg/dl (7-20)
[2018-09-20 08:54] LABS: CREATININE 0.46 mg/dl (0.44-1.00)
[2018-09-20] MEDS: MIDAZOLAM (DRIP) 50 mg/50 mL 50 ML IV (09:07)
[2018-09-20] MEDS: FENTAnyl (DRIP) 1000 mcg/100mL 100 ML IV (09:16)
== END 2018-09-20 10:00 | disposition short-term general hospital (02) | DRG 802 ==
LOC: ICU 09-16 00:50 → TEL 18:30 → PP2 09-07 06:45
PROC: 0CBM8ZX Excision of Pharynx, Via Natural or Artificial Opening Endoscopic, Diagnostic (ICD-10-PCS; 2018-09-15 19:30)
PROC: 0CB7XZX Excision of Tongue, External Approach, Diagnostic (ICD-10-PCS; 2018-09-15 19:30)
PROC: 07B13ZX Excision of Right Neck Lymphatic, Percutaneous Approach, Diagnostic (ICD-10-PCS; principal; 2018-09-15 21:29)
PROC: 02HV33Z Insertion of Infusion Device into Superior Vena Cava, Percutaneous Approach (ICD-10-PCS; 2018-09-15 21:29)
PROC: 5A1955Z Respiratory Ventilation, Greater than 96 Consecutive Hours (ICD-10-PCS; 2018-09-15 21:29)
PROC: 0BH17EZ Insertion of Endotracheal Airway into Trachea, Via Natural or Artificial Opening (ICD-10-PCS; 2018-09-15 21:29)
DX: L04.0 Acute lymphadenitis of face, head and neck (principal); J05.11 Acute epiglottitis with obstruction; J39.0 Retropharyngeal and parapharyngeal abscess; B37.0 Candidal stomatitis; K92.1 Melena; R59.1 Generalized enlarged lymph nodes; J03.90 Acute tonsillitis, unspecified; D72.829 Elevated white blood cell count, unspecified; K14.0 Glossitis; J35.1 Hypertrophy of tonsils; R13.10 Dysphagia, unspecified; I95.9 Hypotension, unspecified; E86.0 Dehydration; R11.2 Nausea with vomiting, unspecified; R10.11 Right upper quadrant pain; R19.7 Diarrhea, unspecified; L27.0 Generalized skin eruption due to drugs and medicaments taken internally; R60.9 Edema, unspecified; T36.8X5A Adverse effect of other systemic antibiotics, initial encounter; Y92.239 Unspecified place in hospital as the place of occurrence of the external cause
CPT/HCPCS: 36569; 36600; 70491; 70542; 70552; 71045; 71046; 74177; 76536; 76937; 80048; 80053; 80202; 82270; 82565; 82803; 83036; 83605; 83735; 84100; 84436; 84443; 84479; 84520; 85025; 86021; 86674; 87040-91; 87045; 87070; 87081; 87102; 87116; 87177; 87338; 88104; 88304; 88305; 88313; 92526; 92610; 93005; 94002; 94003; 94770